=== PATIENT | female | born 1985 | race Caucasian/White ===

== ENCOUNTER 2017-01-21 19:53 | Emergency (ER) | payer SELFPAY ==
[~2017-01-21] VITALS: Ht 157.5 cm; Wt 127.5 kg
[2017-01-21] MEDS ORDERED: ONDANSETRON PF 4 MG/2 ML VIAL. IV ONE (21:00)
[2017-01-21] MEDS ORDERED: diphenhydrAMINE 50 MG/ML VIAL IVP ONE (21:00)
[2017-01-21] MEDS ORDERED: IV NORMAL SALINE 1000ML BAG 1,000 ML IV ONE (21:00)
[2017-01-21 21:30] VITALS: BP 110/69
--- NOTE | 2017-01-21 21:45 | PHYS DOC ---
Past Medical History Past Medical History: Bipolar Past Surgical History: No Surgical History Alcohol Use: None Drug Use: None Adult General Chief Complaint Chief Complaint: MUSCLE SPASM/CRAMP HPI HPI Patient is a 31 year old female who complains of muscle cramps and spasms in her head and neck. Patient recently was started on Loxatine, and her dose was recently increased. She's never had this before. She's complaining of nausea, vomiting, and feeling like she has trouble breathing because of her neck cramps. Review of Systems Review of Systems Respiratory: Shortness of breath due to neck muscle spasm GI: Complains of nausea and vomiting Current Medications Current Medications Current Medications Medications (Trade) Dose Ordered Sig/Alfredito Start Time Stop Time Status Last Admin Dose Admin Diphenhydramine HCl (Benadryl) 25 mg 1X ONCE 01/21/17 22:00 01/21/17 22:01 01/21/17 21:49 25 MG Ondansetron HCl (Zofran) 4 mg 1X ONCE 01/21/17 21:00 01/21/17 21:01 DC 01/21/17 20:54 4 MG Sodium Chloride 1,000 ml @ 1,000 mls/hr 1X ONCE 01/21/17 21:00 01/21/17 21:59 DC 01/21/17 20:54 1,000 MLS/HR Allergies Allergies Allergies Coded Allergies Type Severity Reaction Last Updated Verified No Known Drug Allergies 01/21/17 No Physical Exam Physical Exam Constitutional: Well developed, well nourished, alert, mentating normally, has obvious dystonia with her head turned to the right and her neck flexed HENT: Normocephalic, atraumatic, bilateral external ears normal, nose normal. [ ] Eyes: conjunctiva normal, no discharge. [] Neck: Held in flexion and some rotation due to dystonia Skin: Warm, dry, no erythema, no rash. [] Extremities: No tenderness, no cyanosis, no clubbing, ROM intact, no edema. [] Neurologic: Alert and oriented X 3, normal motor function, normal sensory function, no focal deficits noted. [] Current Patient Data Vital Signs Vital Signs Date Time Temp Pulse Resp B/P (MAP) Pulse Ox O2 Delivery O2 Flow Rate FiO2 01/21/17 21:30 52 110/69 (83) 95 Room Air 9/6/17 19:53 98.0 16 98.0 Lab Values Laboratory Tests Test 01/21/17 19:21 POC Urine HCG, Qualitative Hcg negative (Negative) EKG EKG [] Radiology/Procedures Radiology/Procedures [] Course & Med Decision Making Course & Med Decision Making Pertinent Labs and Imaging studies reviewed. (See chart for details) 31-year-old female presents with a dystonic reaction. She was given IV Benadryl and her dystonic reaction resolved. Patient is much more comfortable. See instructions for plan. [] Dragon Disclaimer Dragon Disclaimer This electronic medical record was generated, in whole or in part, using a voice recognition dictation system. Departure Departure Impression: Primary Impression: Dystonic drug reaction Disposition: HOME, SELF-CARE Condition: IMPROVED Referrals: JENNIFER CLAIRE (PCP) Patient Instructions: Dystonic Reaction-Brief Additional Instructions: Take Benadryl 25 mg one every 6 hours for the next 2 days, then as needed for symptoms. If the symptoms start again, take an extra Benadryl. Drink plenty of fluids. If this continues, talk to the doctor who is prescribing your medication. HARIKA FLORES MD Jan 21, 2017 21:45
[2017-01-21] MEDS ORDERED: diphenhydrAMINE HCL 25 MG CAPSULE PO ONE (22:00)
== END 2017-01-21 21:58 | disposition home or self-care (01) ==
LOC: ER 19:53
DX: G24.09 Other drug induced dystonia (principal); T43.595A Adverse effect of other antipsychotics and neuroleptics, initial encounter; F31.9 Bipolar disorder, unspecified; Y92.89 Other specified places as the place of occurrence of the external cause
CPT/HCPCS: 81025; 96361; 96374; 96375; 99284; J1200; J2405; J7030; Q0163